=== PATIENT | male | born 1980 | race Caucasian/White ===

== ENCOUNTER → 2024-02-11 10:43 | Outpatient (REF) | payer BC, SELFPAY | LOC: ANHLAB 10:43 | PROVIDERS: PCP Family Medicine; Visit Provider Plastic Surgery | DX: M67.49 Ganglion, multiple sites (principal); M67.89 Other specified disorders of synovium and tendon, multiple sites; M71.39 Other bursal cyst, multiple sites | CPT/HCPCS: 88305 ==